=== PATIENT | male | born 1935 | race Two or more races ===

== ENCOUNTER 2023-03-09 08:47 | Inpatient (IN) | payer OTHER ==
[~2023-03-09] VITALS: Ht 167.6 cm; Wt 75.3 kg
[2023-03-09] VITALS (15 sets, daily range): BP systolic 81–129; BP diastolic 49–83
--- NOTE | 2023-03-09 08:57 | NUR ---
UDAY FOR ALOC, WAS FOUND LAYING ON GROUND AT HOME, CONFUSED, 96% O2 ON 15 LPM O2 VIA NRB.
--- NOTE | 2023-03-09 09:00 | NUR ---
BLOOD SAMPLES OBTAINED
--- NOTE | 2023-03-09 09:07 | NUR ---
A/O X 2 (NEGATIVE TO DATE)
[2023-03-09 09:15] LABS: BASOPHILS % (AUTO) 0.3 % (0.0-2.0); HEMATOCRIT 36 % (39-51); HEMOGLOBIN 11.9 g/dL (13.5-17.5); LYMPHOCYTES # (AUTO) 0.3 K/uL (0.8-4.8); LYMPHOCYTES % (AUTO) 2.2 % (20.0-44.0); MEAN CORPUSCULAR HGB CONC 33 g/dl (31.0-36.0); MEAN CORPUSCULAR VOLUME 95 fL (80-96); MONOCYTES # (AUTO) 0.8 K/uL (0.1-1.30); NEUTROPHILS % (AUTO) 91.5 % (43.0-81.0); PLATELET COUNT (AUTO) 115 K/uL (150-450); RED BLOOD CELL COUNT(AUTO) 3.76 MIL/uL (4.5-6.0); WHITE BLOOD COUNT (AUTO) 13.2 K/uL (4.3-11.0)
[2023-03-09 09:25] LABS: CALCIUM, SERUM 9.1 mg/dL (8.5-10.1); CARBON DIOXIDE 25 mmol/L (21-32); CHLORIDE 104 mmol/L (98-107); CREATININE 1.2 mg/dL (0.6-1.3); GLUCOSE 160 mg/dL (74-106); POTASSIUM 3.9 mmol/L (3.5-5.1); SODIUM SERUM 141 mmol/L (136-145); UREA NITROGEN, BLOOD 33 mg/dL (7-18)
[2023-03-09] MEDS ORDERED: ACETAMINOPHEN 325 MG TABLET PO ONE (09:30)
[2023-03-09] MEDS ORDERED: CEFTRIAXONE 1 G in IV D5W 50 ML IV ONE (09:30)
--- NOTE | 2023-03-09 09:30 | NUR ---
COVID AND RAPID INFLUENZA SWAB OBTAINED
[2023-03-09 09:31] LABS: ALANINE AMINOTRANSFERASE 103 U/L (12-78); ALBUMIN 3.7 g/dL (3.4-5.0); ALCOHOL, BLOOD < 3 mg/dL (0-0); ALKALINE PHOSPHATASE 57 U/L (46-116); ASPARTATE AMINOTRANSFERASE 289 U/L (15-37); BILIRUBIN,DIRECT 0.5 mg/dL (0.0-0.2); BILIRUBIN,TOTAL 1.5 mg/dL (0.2-1.0)
[2023-03-09] MEDS ORDERED: CEFTRIAXONE 1GM BAG (ER ONLY) 50 ML IV ONE (09:31)
[2023-03-09] MEDS ORDERED: ACETAMINOPHEN 325 MG TABLET ONE (09:42)
--- NOTE | 2023-03-09 09:52 | NUR ---
FLUIDS HELD PENDING CHEST XR
--- NOTE | 2023-03-09 09:57 | NUR ---
KALA EVANS ([facility]) [phone]
--- NOTE | 2023-03-09 09:58 | NUR ---
[id number] [id number] [facility] [id number]
--- NOTE | 2023-03-09 10:02 | NUR ---
CALLED [facility] [phone] WILL SEND CLINICALS AND WILL CALL BACK.
--- NOTE | 2023-03-09 10:37 | NUR ---
DR. BURCIAGA FROM [facility] SPEAKING WITH DR. GOMEZ.
[2023-03-09] MEDS ORDERED: FUROSEMIDE 20 MG/2 ML VIAL ONE (10:41)
[2023-03-09] MEDS ORDERED: IV NS 0.9% 500 ML IV STA (10:51)
[2023-03-09 10:57] LABS: ABG BASE EXCESS 0.9 mmol/L; ABG PCO2 35.6 mmHg (35.0-45.0); ABG PH 7.455 (7.350-7.450); ABG PO2 93.2 mmHg (75.0-100.0); COHb 0.1 % (0.5-1.5); MetHb 0.3 % (0.0-1.5); O2Hb 96.4 % (94.0-97.0); SITE, ABG Right Radial; VENT MODE, BG 15L NRB
[2023-03-09] MEDS ORDERED: IV NS 0.9% 1,000 ML IV PRN (11:00)
[2023-03-09] MEDS ORDERED: FUROSEMIDE 20 MG/2 ML VIAL IV ONE (11:00)
[2023-03-09] MEDS ORDERED: METRONIDAZOLE 500MG/ NS 100ML 100 ML IV ONE (11:04)
[2023-03-09] MEDS ORDERED: DABIGATRAN ETEXILATE MESYLATE 150 MG CAPSULE PO STA (11:08)
[2023-03-09] MEDS ORDERED: ASPIRIN 325 MG TABLET ONE (11:25)
--- NOTE | 2023-03-09 11:29 | NUR ---
GOT BED 256 ADMITTING INFORMED.
[2023-03-09] MEDS ORDERED: AMMO225L14 TP (11:30)
[2023-03-09] MEDS ORDERED: ASPIRIN 325 MG TABLET PO ONE (11:30)
[2023-03-09] MEDS ORDERED: DABI110C PO (11:30)
[2023-03-09] MEDS ORDERED: DICL100G26 TP (11:30)
[2023-03-09] MEDS ORDERED: FLAGYL/NS RTU 500 MG/100 ML PIGGYBACK IV ONE (11:30)
[2023-03-09] MEDS ORDERED: ATOR40TA PO (11:30)
[2023-03-09] MEDS ORDERED: ENOXAPARIN SODIUM 40 MG/0.4 ML DISP.SYRIN SQ ONE (12:14)
[2023-03-09] MEDS ORDERED: ENOXAPARIN SODIUM 80 MG/0.8 ML DISP.SYRIN SQ ONE (12:15)
[2023-03-09] MEDS: ENOXAPARIN SODIUM 80 MG/0.8 ML DISP.SYRIN SQ SCH ×2 (12:19→21:40)
--- NOTE | 2023-03-09 12:30 | NUR ---
URINE SAMPLE OBTAINED
[2023-03-09 12:48] LABS: BACTERIA,URINE Rare /HPF (None Seen); BILIRUBIN,URINE NEGATIVE (NEGATIVE); COLOR,URINE YELLOW (YELLOW); LEUKOCYTE ESTERASE ,URINE NEGATIVE (NEGATIVE); NITRITE, URINE NEGATIVE (NEGATIVE); PH,URINE 5.5 (5.0-8.0); PROTEIN,URINE 2+ mg/dl (NEGATIVE); SQUAMOUS EPITHELIAL CELL,UR Moderate /HPF (None Seen); UGLUCOSE NEGATIVE (NEGATIVE); UROBILINOGEN,URINE 0.2 EU/dL (0.2); WBC,URINE 0-2 /HPF (0-3)
--- NOTE | 2023-03-09 12:58 | NUR ---
BROTHER GLORIA DRESS [phone]
[2023-03-09] MEDS ORDERED: MAGNESIUM HYDROXIDE 30 ML UDC PO PRN (13:30)
[2023-03-09] MEDS ORDERED: ACETAMINOPHEN 325 MG TABLET PO PRN (13:30)
[2023-03-09] MEDS ORDERED: Z GUARD REMEDY 4 OZ OINT TP PRN (13:30)
[2023-03-09] MEDS ORDERED: IV 1/2NS 1000 ML 1,000 ML IV PRN (13:30)
[2023-03-09] MEDS ORDERED: ONDANSETRON HCL/PF 4 MG/2 ML VIAL IVP PRN (13:30)
[2023-03-09] MEDS ORDERED: MAG HYDROX/AL HYDROX/SIMETH 30 ML UDC PO PRN (13:30)
--- NOTE | 2023-03-09 13:32 | NUR ---
REPORT GIVEN TO RN IN ICU
[2023-03-09] MEDS ORDERED: PIPERACILLIN /TAZOBACTAM 3.375 G VIAL IV ONE (13:35)
[2023-03-09] MEDS: PIPERACILLIN /TAZOBACTAM 3.375 G in IV D5W 50 ML IV SCH ×2 (13:43→21:45)
--- NOTE | 2023-03-09 14:10 | NUR ---
PATIENT TRANSFERRED TO [facility], ALL CARE ENDORSED TO LUCIE KIDD
--- NOTE | 2023-03-09 14:15 | NUR ---
ICU/RN PT PLACED ROOM 256 PER ACLS PROTOCOL. VITAL SIGNS STABLE. PT ON 15L O2 NRB SAT 100% ON BEDSIDE MONITOR, VITAL SIGNS STABLE. PT AWAKE, A&OX2, UNABLE TO RECALL MONTH OR YEAR. PT DOES NOT RECALL INCIDENCE OF FALLING OR HOW LONG AGO HE FELL. RIGHT AC AND LEFT AC 18G IN PLACE, FLUSHING WELL. WOUND PRESENTS, PHOTOS TAKEN. BED LOCKED AND IN LOWEST POSITION, CALL LIGHT WITHIN REACH, 3 SIDE RAILS UP.
[2023-03-09] MEDS: IV D5/ 0.9% NACL 1,000 ML IV PRN ×2 (14:39→21:45)
--- NOTE | 2023-03-09 15:15 | NUR ---
ICU/RN TROPONIN ELEVATED [id number], DR. EDMONDS NOTIFIED.
--- NOTE | 2023-03-09 15:56 | NUR ---
ICU/RN GRAND-NEPHEW FREDRICK VERDIN [phone] AND BELA VERDIN [phone] FREDRICK VERDIN AT BEDSIDE, UPDATED ON CONDITION. PER FAMILY REQUEST TO HAVE FREDRICK AND BELA PRIMARY CONTACT DUE TO GEOGRAPHICAL PROXIMITY TO HOSPITAL, PT'S SIBLINGS ARE ON THE EAST COAST.
[2023-03-09] MEDS ORDERED: NOREPINEPHRINE 8 MG in IV NS 0.9% 242 ML IV PRN (17:30)
[2023-03-09] MEDS ORDERED: IV NS 0.9% 250 ML IV PRN (21:30)
[2023-03-09] MEDS ORDERED: DOXYCYCLINE 100 MG VIAL ONE (21:59)
[2023-03-09] MEDS ORDERED: ZOLPIDEM TARTRATE 5 MG TABLET PO PRN (22:00)
[2023-03-09] MEDS: DOXYCYCLINE 100 MG in IV D5W 100 ML IV SCH (22:30)
[2023-03-10] VITALS (20 sets, daily range): BP systolic 89–153; BP diastolic 47–82
--- NOTE | 2023-03-10 00:35 | NUR ---
FIBERGLASS LUGGAGE MOLDERLUCIE RILEY STILL PENDING; LAB WILL FOLLOW UP WITH [facility]. Addendum: 03/10/23 at 0116 by BRANDON RODRÍGUEZ RN CKTATO TURN AROUND TIME 1-3 DAYS PER LAB
[2023-03-10] MEDS ORDERED: FUROSEMIDE 40 MG/4 ML VIAL IV ONE (01:00)
--- NOTE | 2023-03-10 01:00 | NUR ---
EXCELLENCE MANAGER PT WITH INTERMITTENT DESATURATION; CONGESTED UNABLE TO EXPECTORATE SPUTUM. NOTIFIED DIRECTOR DISTRIBUTION RCD ORDERS FOR LASIX AND NT SUCTION. RT NOTIFIED.
[2023-03-10] MEDS: PIPERACILLIN /TAZOBACTAM 3.375 G in IV D5W 50 ML IV SCH ×2 (04:00→12:29)
[2023-03-10] MEDS: IV D5/ 0.9% NACL 1,000 ML IV PRN (05:05)
[2023-03-10 05:11] LABS: HEMATOCRIT 34 % (39-51); LYMPHOCYTES # (AUTO) 0.5 K/uL (0.8-4.8); LYMPHOCYTES % (AUTO) 3.7 % (20.0-44.0); MEAN CORPUSCULAR HGB CONC 33 g/dl (31.0-36.0); MEAN CORPUSCULAR VOLUME 98 fL (80-96); MONOCYTES % (AUTO) 7.8 % (2.0-12.0); NEUTROPHILS # (AUTO) 11.1 K/uL (1.8-8.9); NEUTROPHILS % (AUTO) 88.5 % (43.0-81.0); PLATELET COUNT (AUTO) 101 K/uL (150-450); RED BLOOD CELL COUNT(AUTO) 3.46 MIL/uL (4.5-6.0); WHITE BLOOD COUNT (AUTO) 12.6 K/uL (4.3-11.0)
[2023-03-10 05:26] LABS: BILIRUBIN,DIRECT 0.4 mg/dL (0.0-0.2); CALCIUM, SERUM 8.5 mg/dL (8.5-10.1); CREATININE 1.2 mg/dL (0.6-1.3); MAGNESIUM 1.8 mg/dL (1.8-2.4); PHOSPHORUS 2.5 mg/dL (2.5-4.9); POTASSIUM 3.3 mmol/L (3.5-5.1); TOTAL PROTEIN, SERUM 5.9 g/dL (6.4-8.2)
[2023-03-10 05:34] LABS: THYROID STIMULATING HORMONE 0.532 uIU/mL (0.358-3.74)
--- NOTE | 2023-03-10 07:10 | NUR ---
SUGAR CANE PLANTING EQUIPMENT OPERATOR NOTE Patient's GCS [id number], bilateral pupils 3mm PEARLLA. Denied chest pain. box inspector showed atrial fibrillation with HR 80s/min. BP is normal. SpO2 92-94% with 6L oxygen via nasal cannula. Auscultation of lungs reveals decreased breathing sounds over the entire lung field, with crackles auscultated over the right lower lung. No LL edema. Call ca is placed within reach. Bed is locked and placed in the lowest position. WIll continue monitoring.
[2023-03-10] MEDS: DOXYCYCLINE 100 MG in IV D5W 100 ML IV SCH (08:52)
[2023-03-10] MEDS ORDERED: PANTOPRAZOLE 40 MG VIAL IV SCH (09:00)
[2023-03-10] MEDS: ENOXAPARIN SODIUM 80 MG/0.8 ML DISP.SYRIN SQ SCH (09:00)
--- NOTE | 2023-03-10 09:00 | NUR ---
FELLED SEAM OPERATOR CHAINSTITCH NOTE Decreased IVF rate to 70mL/hr as ordered. Will keep observation of urine output.
[2023-03-10] MEDS: POTASSIUM CHLORIDE 20 MEQ TAB.PRT.SR PO SCH ×3 (09:40→11:03)
--- NOTE | 2023-03-10 13:00 | NUR ---
LINING CEMENTER NOTE Notified by BRIGETTE Bergman that they are working on transfer for patient to [place]. Would prepare the documents required for transfer.
--- NOTE | 2023-03-10 16:46 | NUR ---
APARTMENT HOTEL MANAGER NOTE Patient is for transfer to room 57-77[facility]. Handover was given to RN Rizwana and informed them about the pick-up time. Informed patient and the grand-nephew Kvng about the time and place of transfer.
--- NOTE | 2023-03-10 19:05 | NUR ---
BIOMEDICAL ENGINEERING SUPERVISOR NOTE Handover was given to RN of [facility] ambulance. Patient is alert and conscious without active complaint. vitals are stable prior to transfer. Patient left via gurney at 1905.
== END 2023-03-10 19:00 | disposition short-term general hospital (02) | DRG 871 ==
LOC: ER 09:43 → ICU 12:33
PROVIDERS: ADMIT Student in an Organized Health Care Education/Training Program; ATTEND Student in an Organized Health Care Education/Training Program
PROC: 05H933Z Insertion of Infusion Device into Right Brachial Vein, Percutaneous Approach (ICD-10-PCS; principal; 2023-03-10)
DX: A41.9 Sepsis, unspecified organism (principal); G93.41 Metabolic encephalopathy; J69.0 Pneumonitis due to inhalation of food and vomit; I21.A1 Myocardial infarction type 2; J96.01 Acute respiratory failure with hypoxia; M62.82 Rhabdomyolysis; E87.20 Acidosis, unspecified; I42.9 Cardiomyopathy, unspecified; R74.01 Elevation of levels of liver transaminase levels; E78.5 Hyperlipidemia, unspecified; D69.6 Thrombocytopenia, unspecified; D64.9 Anemia, unspecified; I48.91 Unspecified atrial fibrillation; I50.9 Heart failure, unspecified; Z20.822 Contact with and (suspected) exposure to COVID-19; Z91.81 History of falling; Z95.1 Presence of aortocoronary bypass graft; Z79.01 Long term (current) use of anticoagulants
CPT/HCPCS: 36415; 36600; 70450-TC; 71045-TC; 72125-TC; 76705-TC; 80048-TC; 80053-TC; 80076-TC; 81001; 82550-TC; 82553; 82803-TC; 83605-TC; 83735-TC; 83880; 84100-TC; 84443-TC; 84484-TC; 85025-TC; 85730-TC; 87040-TC; 87081-TC; 93307-TC; A4223; A4349; A6403; C9113; C9803; G0378; G0480; J0696; J1650; J1940; J2543; J3490; J7030; J7040; J7042; J7050; J7060